=== PATIENT | male | born 1950 | race Hispanic/Latino ===

== ENCOUNTER 2019-07-25 17:43 | Inpatient (IN) | payer MEDICARE ==
[~2019-07-25] VITALS: Ht 170.2 cm; Wt 105.4 kg
[2019-07-25] MEDS ORDERED: ASPIRIN 325 MG TABLET ONE (18:39)
[2019-07-25] MEDS ORDERED: SODIUM CHLORIDE 0.9% 1000ML 2,000 ML IV ONE (19:30)
[2019-07-25] MEDS ORDERED: ONDANSETRON HCL 4 MG/2 ML VIAL ONE (19:32)
[2019-07-25 19:38] LABS: BASOPHILS % (AUTO) 0.9 % (0.0-5.0); HEMATOCRIT 47.5 % (42-54); LYMPHOCYTES % (AUTO) 10.6 % (21.0-51.0); MEAN CORPUSCULAR HEMOGLOBIN 33.4 pg (27.0-33.0); MEAN CORPUSCULAR VOLUME 95.3 fL (79-99); MONOCYTES % (AUTO) 16.8 % (3.0-13.0); NEUTROPHILS % (AUTO) 71.7 % (40.0-77.0); PLATELET COUNT (AUTO) 237 K/uL (130-400); RED BLOOD CELL COUNT(AUTO) 4.99 MIL/uL (4.50-6.20); WHITE BLOOD COUNT (AUTO) 8.2 K/uL (4.8-10.8)
[2019-07-25 19:51] LABS: ALBUMIN 3.7 g/dL (3.5-5.0); BILIRUBIN,TOTAL 0.5 mg/dL (0.2-1.0); POTASSIUM 4.3 mmol/L (3.5-5.1); TOTAL PROTEIN, SERUM 7.8 g/dL (6.0-8.3)
[2019-07-25 20:00] LABS: INR 0.9 (0.85-1.15); PARTIAL THROMBOPLASTIN TIME 29.1 SEC (26.3-35.5); PROTHROMBIN TIME 10.2 SEC (9.6-11.6)
[2019-07-25] MEDS ORDERED: ONDANSETRON HCL 4 MG/2 ML VIAL IV PRN (22:30)
[2019-07-25] MEDS ORDERED: LACTULOSE 20 GM/30 ML UDCUP PO PRN (22:30)
[2019-07-25] MEDS ORDERED: ACETAMINOPHEN 325 MG TAB PO PRN ×2 (22:30)
[2019-07-25] MEDS ORDERED: HYDRALAZINE HCL 20 MG/ML VIAL IV PRN (23:00)
[2019-07-25] MEDS ORDERED: MORPHINE SULFATE 2 MG/ML 1ML SYG IVP PRN (23:00)
[2019-07-26 01:48] LABS: APPEARANCE,URINE Clear (CLEAR); BILIRUBIN,URINE Negative (NEGATIVE); COLOR,URINE Yellow (YELLOW); GLUCOSE, URINE (UA) Negative (NEGATIVE); KETONES,URINE Negative (NEGATIVE); LEUKOCYTE ESTERASE ,URINE Small (NEGATIVE); NITRATE,URINE Negative (NEGATIVE); OCCULT BLOOD,URINE Negative (NEGATIVE); PH,URINE 5.5 (5.0-8.0); PROTEIN,URINE Negative (NEGATIVE)
[2019-07-26] MEDS ORDERED: LORAZEPAM 2 MG/ML 1 ML VIAL ONE (01:52)
[2019-07-26 01:58] LABS: BACTERIA,URINE None Seen /HPF (None Seen); RBC,URINE None Seen /HPF (0-1); SQUAMOUS EPITHELIAL CELL,UR Rare /HPF (0-2)
[2019-07-26 04:58] LABS: BASOPHILS % (AUTO) 0.5 % (0.0-5.0); EOSINOPHILS % (AUTO) 0.6 % (0.0-8.0); HEMATOCRIT 42.9 % (42-54); MEAN CORPUSCULAR HEMOGLOBIN 33.1 pg (27.0-33.0); MEAN CORPUSCULAR HGB CONC 34.9 g/dL (32.0-36.0); MEAN CORPUSCULAR VOLUME 94.9 fL (79-99); MONOCYTES % (AUTO) 17.8 % (3.0-13.0); NEUTROPHILS % (AUTO) 49.1 % (40.0-77.0); NUCLEATED RED BLOOD CELLS 0.1 % (0.0-0.19); PLATELET COUNT (AUTO) 230 K/uL (130-400); RED BLOOD CELL COUNT(AUTO) 4.52 MIL/uL (4.50-6.20); RED CELL DISTRIBUTION WIDTH 13.1 % (11.0-15.5); WHITE BLOOD COUNT (AUTO) 5.1 K/uL (4.8-10.8)
[2019-07-26 05:19] LABS: CREATININE 0.9 mg/dL (0.5-1.5); POTASSIUM 3.9 mmol/L (3.5-5.1)
[2019-07-26] MEDS: SODIUM CHLORIDE 0.9% 1000ML 1,000 ML IV SCH ×4 (06:19→22:25)
[2019-07-26] MEDS: INSULIN HUMULIN R 100 UNIT/ML 3ML SQ SCH ×3 (07:30→16:30)
[2019-07-26] MEDS: ENOXAPARIN SODIUM 40 MG/0.4 ML SYRINGE SQ SCH (09:00)
[2019-07-26] MEDS ORDERED: FLU VACC QS2019-20 36MOS UP/PF 60 MCG/0.5 ML ML IM SCH ×2 (09:00→13:30)
[2019-07-26] MEDS: FAMOTIDINE/PF 20 MG/2 ML VIAL IV SCH ×2 (09:00→21:12)
[2019-07-26] MEDS ORDERED: HYDROXYZINE HCL 10MG/5ML SYRUP 5ML BOTTLE ONE (11:46)
[2019-07-26] MEDS ORDERED: FAMOTIDINE/PF 20 MG/2 ML VIAL IV ONE (11:54)
[2019-07-26] MEDS ORDERED: ENOXAPARIN SODIUM 40 MG/0.4 ML SYRINGE SQ ONE (11:54)
[2019-07-26 12:40] VITALS: BP 134/58
[2019-07-26] MEDS ORDERED: PNEUMOCOCCAL VACCINE POLYVALENT 0.5 ML/VIAL [PPV] IM ONE (13:15)
[2019-07-26] MEDS ORDERED: FLU VACC QS2019-20 36MOS UP/PF 60 MCG/0.5 ML ML IM ONE (13:15)
[2019-07-26] MEDS ORDERED: PHARMACY COMMUNICATION MISC SCH (13:15)
[2019-07-26] MEDS ORDERED: PNEUMOCOCCAL VACCINE POLYVALENT 0.5 ML/VIAL [PPV] IM SCH (13:30)
[2019-07-26 16:00] VITALS: BP 129/64
--- NOTE | 2019-07-26 17:16 | NUR ---
INITIAL: Met with pt and family this afternoon to discuss dcp. Pt mentions that he lives w his spouse. prior to admission he was independent w ambulation and ADLs. He does not own any DME or receive services. Per pt he feels safe and comfortable to return home at vt. CM to continue to follow and wait for Md recommendations. Addendum: 07/26/19 at 1717 by ANA ROSA JERRY Amended: Links added.
[2019-07-26 20:00] VITALS: BP 128/59
--- NOTE | 2019-07-26 20:00 | NUR ---
PM Assessment Received pt with family at the bedside, NS at 125cc/hr infusing well, routine assessment done, plan of care discuss with emphasis of the importance of just not staying in bed, need to ambulate/ moved around to help with gastric motility. Pt stated last BM was on 07/23 & claimed still able to pass a little flatus. Pt made aware reason behind why NGT was place, for abdominal decompression. Pt currently claimed feeling better at this time. Pt reminded to remain NPO for now, toothettes provided.
[2019-07-27] VITALS: BP 113/50
[2019-07-27 04:00] VITALS: BP 132/54
[2019-07-27] MEDS: INSULIN HUMULIN R 100 UNIT/ML 3ML SQ SCH ×4 (06:00→18:00)
[2019-07-27] MEDS: SODIUM CHLORIDE 0.9% 1000ML 1,000 ML IV SCH ×2 (06:05→18:31)
[2019-07-27 06:30] LABS: EOSINOPHILS % (AUTO) 2.2 % (0.0-8.0); HEMATOCRIT 40.2 % (42-54); MEAN CORPUSCULAR HEMOGLOBIN 32.9 pg (27.0-33.0); MEAN CORPUSCULAR HGB CONC 34.5 g/dL (32.0-36.0); MEAN CORPUSCULAR VOLUME 95.4 fL (79-99); NEUTROPHILS % (AUTO) 50.8 % (40.0-77.0); NUCLEATED RED BLOOD CELLS 0.1 % (0.0-0.19); PLATELET COUNT (AUTO) 226 K/uL (130-400); RED BLOOD CELL COUNT(AUTO) 4.21 MIL/uL (4.50-6.20); RED CELL DISTRIBUTION WIDTH 13.1 % (11.0-15.5)
[2019-07-27 07:30] VITALS: BP 126/61
[2019-07-27 08:53] LABS: CREATININE 0.9 mg/dL (0.5-1.5)
[2019-07-27] MEDS: ENOXAPARIN SODIUM 40 MG/0.4 ML SYRINGE SQ SCH (09:23)
[2019-07-27] MEDS: FAMOTIDINE/PF 20 MG/2 ML VIAL IV SCH ×2 (09:23→20:12)
[2019-07-27 10:37] LABS: POTASSIUM 3.7 mmol/L (3.5-5.1)
[2019-07-27 11:00] VITALS: BP 132/65
[2019-07-27] MEDS ORDERED: ATOR40TA71 PO (13:38)
[2019-07-27] MEDS ORDERED: LISI-617 PO (13:38)
[2019-07-27 16:00] VITALS: BP 140/67
[2019-07-27 20:00] VITALS: BP 139/65
[2019-07-27] MEDS ORDERED: PHENOL 177 ML BOTTLE PO PRN (20:00)
--- NOTE | 2019-07-27 21:00 | NUR ---
OOB Pt out of bed,ngt clamped.Ambulating in the hallway with his son.Kaitlynn well.
[2019-07-28] VITALS: BP 131/67
[2019-07-28] MEDS: SODIUM CHLORIDE 0.9% 1000ML 1,000 ML IV SCH ×3 (00:08→14:19)
[2019-07-28 04:00] VITALS: BP 146/74
[2019-07-28 04:40] LABS: BASOPHILS % (AUTO) 0.5 % (0.0-5.0); EOSINOPHILS % (AUTO) 2.2 % (0.0-8.0); HEMATOCRIT 38.5 % (42-54); LYMPHOCYTES % (AUTO) 34.4 % (21.0-51.0); MEAN CORPUSCULAR HEMOGLOBIN 32.9 pg (27.0-33.0); MEAN CORPUSCULAR HGB CONC 35.1 g/dL (32.0-36.0); MEAN CORPUSCULAR VOLUME 93.8 fL (79-99); MONOCYTES % (AUTO) 11.1 % (3.0-13.0); NEUTROPHILS % (AUTO) 51.8 % (40.0-77.0); PLATELET COUNT (AUTO) 250 K/uL (130-400); RED BLOOD CELL COUNT(AUTO) 4.11 MIL/uL (4.50-6.20); WHITE BLOOD COUNT (AUTO) 5.3 K/uL (4.8-10.8)
[2019-07-28 04:52] LABS: CREATININE 0.9 mg/dL (0.5-1.5); POTASSIUM 3.5 mmol/L (3.5-5.1)
[2019-07-28] MEDS: INSULIN HUMULIN R 100 UNIT/ML 3ML SQ SCH ×3 (06:00→12:00)
--- NOTE | 2019-07-28 06:22 | NUR ---
NGT Ngt output for the night-300 ml.
[2019-07-28 08:00] VITALS: BP 119/52
[2019-07-28] MEDS: FAMOTIDINE/PF 20 MG/2 ML VIAL IV SCH ×2 (08:45→20:41)
[2019-07-28] MEDS: ENOXAPARIN SODIUM 40 MG/0.4 ML SYRINGE SQ SCH (08:46)
[2019-07-28] MEDS ORDERED: HYDROXYZINE HCL 10 MG TABLET PO PRN (09:15)
[2019-07-28 12:00] VITALS: BP 128/66
[2019-07-28] MEDS: DEXTROSE 5 % AND 0.9 % NACL 1,000 ML IV SCH (15:58)
[2019-07-28 16:00] VITALS: BP 146/64
[2019-07-28 20:00] VITALS: BP 131/60
--- NOTE | 2019-07-28 21:00 | NUR ---
NGT was suctioned 30 minutes prior. the output was 10 ml and is communicated to Dr. Alejo.
--- NOTE | 2019-07-28 22:00 | NUR ---
removed NG tube as per Dr. Alejo's order. patient tolerates it and eats clear fluids (jello, water) with no nausea or vomitting.
[2019-07-29] VITALS: BP 141/60
[2019-07-29 04:00] VITALS: BP 126/48
[2019-07-29] MEDS: DEXTROSE 5 % AND 0.9 % NACL 1,000 ML IV SCH ×2 (05:38→17:55)
[2019-07-29] MEDS: INSULIN HUMULIN R 100 UNIT/ML 3ML SQ SCH ×4 (06:00→18:00)
[2019-07-29 07:00] VITALS: BP 132/47
[2019-07-29] MEDS: FAMOTIDINE/PF 20 MG/2 ML VIAL IV SCH (08:55)
[2019-07-29] MEDS: ENOXAPARIN SODIUM 40 MG/0.4 ML SYRINGE SQ SCH (08:56)
[2019-07-29 12:00] VITALS: BP 131/68
[2019-07-29 16:00] VITALS: BP 135/64
--- NOTE | 2019-07-29 20:00 | NUR ---
MD Dr LUNDBERG came to see pt.He said pt can go home,no need for follow up with him.Yusuf Hernandez [employer] informed he said he will place discharge orders.
--- NOTE | 2019-07-29 20:50 | NUR ---
DISCHARGED Discharged instructions given to pt.and ,verbalized understanding.No new prescriptions given.Pt discharged in stable condition.Iv dcd.cath tip intact.
== END 2019-07-29 20:55 | disposition home or self-care (01) | DRG 389 ==
LOC: EDH 17:43 → OBSVTOIN 22:19 → EDHIP 22:19 → 3AH 07-26 12:28
PROVIDERS: ADMIT Hospitalist; ATTEND Hospitalist
PROC: 0D9670Z Drainage of Stomach with Drainage Device, Via Natural or Artificial Opening (ICD-10-PCS; principal; 2019-07-25)
PROC: 3E02340 Introduction of Influenza Vaccine into Muscle, Percutaneous Approach (ICD-10-PCS; 2019-07-26)
PROC: 3E0234Z Introduction of Serum, Toxoid and Vaccine into Muscle, Percutaneous Approach (ICD-10-PCS; 2019-07-26)
DX: K56.600 Partial intestinal obstruction, unspecified as to cause (principal); E87.1 Hypo-osmolality and hyponatremia; F17.210 Nicotine dependence, cigarettes, uncomplicated; E78.00 Pure hypercholesterolemia, unspecified; E11.9 Type 2 diabetes mellitus without complications; I10 Essential (primary) hypertension; E78.5 Hyperlipidemia, unspecified; Z98.1 Arthrodesis status; Z23 Encounter for immunization; Z79.899 Other long term (current) drug therapy; Z79.82 Long term (current) use of aspirin
CPT/HCPCS: 36415; 71045; 74021; 74176; 80048; 80053; 81001; 82550; 82948; 83690; 84484; 85025; 85610; 85730; 90732; 93005; G0008; G0009; G0378; J1650; J2060; J2405; J3490; J7030; J7042; Q2035

== ENCOUNTER → 2020-03-29 | Outpatient (CLI) | payer OTHER | END | disposition home or self-care (01) | LOC: SHCH 12:38 | PROVIDERS: ATTEND Internal Medicine Cardiovascular Disease | DX: I25.10 Atherosclerotic heart disease of native coronary artery without angina pectoris (principal) ==

== ENCOUNTER → 2020-04-05 | Outpatient (CLI) | payer OTHER ==
[~2020-04-05] MED LIST: ATOR40TA71 PO; LISI-617 PO; REGADENOSON 0.4 MG/5 ML PF SYG IVP SCH
== END | disposition home or self-care (01) ==
LOC: SHCH 08:37
PROVIDERS: ATTEND Internal Medicine Cardiovascular Disease
DX: I25.10 Atherosclerotic heart disease of native coronary artery without angina pectoris (principal)
CPT/HCPCS: 78452; 93017; 96374; A9500 ×2; J2785